=== PATIENT | male | born 1985 | race Caucasian/White ===

== ENCOUNTER 2023-10-24 19:24 | Emergency (ER) | payer OTHER ==
[~2023-10-24] VITALS: Ht 172.7 cm; Wt 87.5 kg
[2023-10-24 20:18] LABS: BASO # 0.1 10^3/uL (0.0-0.2); BASO % 0.9 % (0.0-1.0); EOS # 0.2 10^3/uL (0.0-0.5); EOS % 3.4 % (0.0-3.0); HEMATOCRIT 42.5 % (42.0-52.0); HEMOGLOBIN 14.7 g/dl (13.5-17.5); LYMPH # 1.9 10^3/uL (1.5-5.0); LYMPH % 29.3 % (24.0-44.0); MEAN CORPUSCULAR HEMOGLOBIN 30.9 pg (27.0-33.0); MEAN CORPUSCULAR HGB CONC 34.6 g/dl (32.0-36.5); MEAN CORPUSCULAR VOLUME 89.5 fl (80.0-96.0); MONO # 0.7 10^3/uL (0.0-0.8); MONO % 11.1 % (2.0-8.0); NEUTROPHILS # 3.6 10^3/uL (1.5-8.5); NEUTROPHILS % 55.1 % (36.0-66.0); PLATELET COUNT, AUTOMATED 248 10^3/uL (150-450); RED BLOOD COUNT 4.75 10^6/uL (4.30-6.10); WHITE BLOOD COUNT 6.5 10^3/uL (4.0-10.0)
[2023-10-24 20:36] LABS: CK-MB VALUE MASS < 1.0 NG/ML (<3.6)
[2023-10-24 20:37] LABS: ALKALINE PHOSPHATASE 104 U/L (46-116); ALT/SGPT 44 U/L (7.0-40); AST/SGOT 18 U/L (<34); BILIRUBIN,TOTAL 0.4 MG/DL (0.3-1.2); BLOOD UREA NITROGEN 23 MG/DL (9-23); CALCIUM LEVEL 8.7 MG/DL (8.5-10.1); CARBON DIOXIDE LEVEL 30 MMOL/L (20-31); CHLORIDE LEVEL 107 MMOL/L (98-107); CPK CREATINE PHOSPHOKINASE 158 U/L (46-171); CREATININE FOR GFR 0.98 MG/DL (0.70-1.30); GLOMERULAR FILTRATION RATE > 60.0 (>60); GLUCOSE, FASTING 104 MG/DL (60-100); MB/CK RELATIVE INDEX 0.63 (< OR =4); SODIUM LEVEL 141 MMOL/L (136-145); TOTAL PROTEIN 6.5 G/DL (5.7-8.2)
[2023-10-24 21:39] LABS: CK-MB VALUE MASS < 1.0 NG/ML (<3.6)
[2023-10-24 21:42] LABS: CPK CREATINE PHOSPHOKINASE 155 U/L (46-171); MB/CK RELATIVE INDEX 0.64 (< OR =4)
[2023-10-24 21:44] LABS: FREE T4 1.13 NG/DL (0.89-1.76); THYROID STIMULATING HORMONE 1.815 uIU/ML (0.55-4.78)
[2023-10-24] MEDS: methocarbamoL 500 MG TAB PO ONE (22:02)
[2023-10-24] MEDS: ACETAMINOPHEN 500 MG TAB PO ONE (22:03)
[2023-10-24] MEDS ORDERED: ISOVUE-370 76% 100ML VIAL As Ordered ONE (22:05)
[2023-10-24] MEDS: KETOROLAC 30 MG/ML 1ML VIAL IV ONE (23:02)
[2023-10-25] MEDS ORDERED: IBUP-1022 PO (00:10)
[2023-10-25] MEDS ORDERED: METH-1164 PO (00:10)
[2023-10-25 00:15] VITALS: BP 110/56; TEMP 97.6; O2SAT 98
== END 2023-10-25 00:26 | disposition home or self-care (01) ==
LOC: M ED 19:24
DX: R07.9 Chest pain, unspecified (principal); R00.1 Bradycardia, unspecified; Z79.1 Long term (current) use of non-steroidal anti-inflammatories (NSAID); Z79.899 Other long term (current) drug therapy
CPT/HCPCS: 71045; 71275; 80053; 82550; 82553; 84439; 84443; 84484; 85025; 93005; 96374; 99284; J1885; Q9967

== ENCOUNTER 2024-10-26 07:58 | Day surgery (SDC) | payer OTHER ==
[~2024-10-26] VITALS: Ht 172.7 cm; Wt 87.0 kg
[~2024-10-26 07:58] MED LIST: ALLO100T PO; FAMO1TAB11 PO; IBUP-1022 PO; METH-1164 PO; OMEP40CA5 PO
[2024-10-26] MEDS ORDERED: LIDOCAINE 2% 100MG/5ML SDV (FOR ANES.) As Ordered ONE (09:12)
[2024-10-26] MEDS ORDERED: fentaNYL 100 MCG/2 ML INJECTION As Ordered ONE (09:12)
[2024-10-26] MEDS ORDERED: propofoL 200 MG/20 ML VIAL As Ordered ONE (09:12)
[2024-10-26] MEDS ORDERED: dexmedeTOMIDine (4MCG/ML)200MCG/50ML BTL (PRECEDEX) As Ordered ONE (09:59)
[2024-10-26 10:40] VITALS: BP 108/75; O2SAT 97
== END 2024-10-26 10:42 | disposition home or self-care (01) ==
LOC: M OPP 07:58
PROVIDERS: ATTEND Internal Medicine Gastroenterology
DX: K31.89 Other diseases of stomach and duodenum (principal); K29.70 Gastritis, unspecified, without bleeding; R12 Heartburn; K58.9 Irritable bowel syndrome, unspecified; K76.0 Fatty (change of) liver, not elsewhere classified; Z90.49 Acquired absence of other specified parts of digestive tract; G47.30 Sleep apnea, unspecified; Z79.899 Other long term (current) drug therapy; M10.9 Gout, unspecified
CPT/HCPCS: 43239; 88305; J3010